=== PATIENT | female | born 1955 | race Caucasian/White ===

== ENCOUNTER 2021-07-25 11:41 | Emergency (ER) | payer OTHER, SELFPAY ==
[2021-07-25 11:50] VITALS: BP 210/127; PULSE 60; RESP 14; TEMP 36.2; O2SAT 97; BMI 38.4
--- NOTE | 2021-07-25 11:51 | XRR_ITS ---
PROCEDURE INFORMATION: Exam: XR Chest Exam date and time: 07/25/2021 12:11 PM Age: 65 years old Clinical indication: Cough and dyspnea and shortness of breath; Additional info: Dyspnea/cough TECHNIQUE: Imaging protocol: XR of the chest. Views: 1 view. COMPARISON: No relevant prior studies available. FINDINGS: Lungs: Streaky bibasilar atelectasis. No consolidation. Pleural spaces: Unremarkable. No pleural effusion. No pneumothorax. Heart/Mediastinum: Unremarkable. No cardiomegaly. Bones/joints: Unremarkable. XR/XR chest 1V portable [id number] IMPRESSION: No evidence of active cardiopulmonary disease.
--- NOTE | 2021-07-25 11:51 | ECG_ITS ---
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 Measurements Intervals [place] Rate: 51 P: 61 [place]: 160 QRS: 28 QRSD: 83 T: 16 QT: 416 QTc: 383 Interpretive Statements SINUS BRADYCARDIA No previous ECG available for comparison Electronically Signed On 07-25-2021 17:13:16 CDT by Angel Do M.D. [email or web address].[email or web address] childrenAir Roboticsprem[facility] health [facility].[employer]/store/OM/[id number]
[2021-07-25 12:07] VITALS: BP 178/102; PULSE 53; RESP 21; O2SAT 97
[2021-07-25 12:13] LABS: Basophils % 0.5 %; Eosinophils # 0.2 10^3/uL (0.0-0.8); Eosinophils % 2.2 %; Hematocrit 39.2 % (37.0-47.0); Hemoglobin 12.9 g/dL (11.5-15.3); Lymphocytes % 24.8 %; Mean Corpuscular HGB Conc 32.9 g/dL (30.0-36.0); Mean Corpuscular Hemoglobin 28.7 pg (28.0-34.0); Mean Corpuscular Volume 87.1 fl (81-99); Mean Platelet Volume 9.7 fL (7.4-10.4); Monocytes # 0.6 10^3/uL (0.2-0.9); Monocytes % 7.7 %; Neutrophils % 64.3 %; Nucleated Red Blood Cells % 0 %; Platelet Count 347 10^3/cmm (130-400); Red Cell Distribution Width 13.7 % (12.1-15.1); White Blood Count 8.1 10^3/uL (4.0-10.0)
--- NOTE | 2021-07-25 12:19 | PC.NURSE ---
PT placed on continuous NIBP, SpO2, and CM
[2021-07-25 12:30] VITALS: BP 174/89; PULSE 59; RESP 17; O2SAT 97
[2021-07-25 12:44] LABS: Troponin T (5th) Once 6 ng/L (0-10)
[2021-07-25 12:54] LABS: Alanine Aminotransferase 24 U/L (0-33); Albumin Level 4.4 g/dL (3.5-5.2); Alkaline Phosphatase 132 IU/L (35-105); Aspartate Amino Transferase 19 U/L (0-32); Blood Urea Nitrogen 16 mg/dL (8-23); Calcium 9.3 mg/dL (8.5-10.5); Carbon Dioxide 25 mmol/L (22-29); Chloride 104 mmol/L (98-107); Globulin 3.1 g/dL (1.3-4.6); Glomerular Filtration Rate 72.4 mL/min (90-130); Glucose 106 mg/dL (65-115); NT Pro B Type Natriuretic Pept 42 pg/mL (0-125); Osmolality Calculated 294 mOsm/kg (285-295); Sodium 141 mmol/L (136-145); Total Bilirubin 0.2 mg/dL (0.15-1.2); Total Protein 7.5 g/dL (6.6-8.7)
[2021-07-25 12:58] LABS: Anion Gap 16.1 (5-19); Potassium 4.1 mmol/L (3.5-5.1)
--- NOTE | 2021-07-25 13:01 | W.ED.SOB ---
HPI - SOB/Dyspnea General: Chief Complaint: Shortness of Breath/Dyspnea Stated Complaint: SOB Time Seen by Provider: 07/25/21 11:49 Source: patient Mode of arrival: ambulatory Limitations: no limitations History of Present Illness: HPI Narrative: 62-year-old female presents emergency room with complaints of shortness of breath the last several weeks. She occasionally has some chest which she describes as tightness in the epigastric region and lower chest she has not had any productive cough she has not had any fever sweats or chills. No known history of coronary artery disease. MD elicited complaint: shortness of breath Pertinent past history: asthma Onset (ago): week(s) (3) Timing: intermittent Severity: moderate Exacerbating factors: exertion and coughing Relieving factors: rest Known history of: asthma Associated symptoms: Reports cough; Deny abdominal pain, chest congestion, chest pain, diaphoresis, dizziness, extremity pain, fever(s), hemoptysis, lightheadedness, myalgias, nausea, orthopnea, palpitations, paresthesias, polydipsia, polyuria, rash, sense of impending doom, syncope or vomiting Treatment prior to arrival: none Review of Systems Const: Denies: fever(s), chills or diaphoresis Eyes: Denies: change in vision or blurry vision ENMT: Denies: throat pain, ear or mastoid pain, nasal discharge or nasal congestion Card: Denies: chest pain, palpitations, lightheadedness, syncope or orthopnea Resp: Denies: hemoptysis or chest congestion GI: Denies: abdominal pain, nausea or vomiting : Denies: flank pain, difficulty voiding, dysuria, urinary frequency or urinary urgency Musc: Denies: extremity pain Skin/Breast: Denies: rash or pruritus Neuro: Denies: dizziness Endo: Denies: polyuria or polydipsia PFSH ED PFSH: Medical History HTN (hypertension) Hyperlipidemia Social History Smoking and tobacco status: never smoked Alcohol intake: never Physical Exam Const: COMMON NORMALS: no acute distress GENERAL APPEARANCE: cooperative and comfortable ORIENTATION/CONSCIOUSNESS: Yes awake, Yes oriented to person, Yes oriented to place and Yes oriented to time HENMT: COMMON NORMALS: normocephalic, atraumatic and hearing grossly normal bilaterally HEAD & SCALP: normocephalic and atraumatic Neck/C-Spine: COMMON NORMALS: no JVD Resp: COMMON NORMALS: normal respiratory effort, No retractions and No use of accessory muscles AUSCULTATION: wheezes (Scant) Cardio: COMMON NORMALS: no JVD and No murmurs present (Cardio) GI: COMMON NORMALS: Soft to palpation and No hepatosplenomegaly present AUSCULTATION: Yes normoactive bowel sounds PALPATION: Yes Soft to palpation, No Tenderness to palpation present (GI), No Guarding due to palpation present (GI) and Yes No hepatosplenomegaly present Extremity: COMMON NORMALS: normal to inspection, capillary refill normal, no clubbing, cyanosis or edema, no calf tenderness and no pedal edema Neuro: SENSORIUM/ORIENTATION: Yes oriented to person, Yes oriented to place and Yes oriented to time Skin: COMMON NORMALS: no rashes or lesions noted GENERAL SKIN EXAM: no rashes or lesions noted Course Vital Signs: Vital signs: Vital Signs Temperature 97.2 F L 07/25/21 11:50 Pulse Rate 65 07/25/21 16:04 Respiratory Rate 26 H 07/25/21 16:04 Blood Pressure 169/80 07/25/21 16:04 Pulse Oximetry 96 07/25/21 16:04 MDM - SOB/Dyspnea Medical Decision Making Labs and imaging reviewed. Treat as asthma exacerbation. Additionally blood pressure is elevated will add amlodipine continue losartan follow-up with primary care within the next week return if is worsening problems. Medical Records I reviewed the patient's medical records. Lab Data I reviewed the patient's lab results. : 07/25/21 11:58 07/25/21 11:58 Labs/Radiology: Radiology Impressions Chest X-Ray 07/25/21 11:51 IMPRESSION: No evidence of active cardiopulmonary disease. Laboratory Results WBC 8.1 10^3/uL (4.0-10.0) 07/25/21 11:58 RBC 4.50 10^6/uL (4.1-5.3) 07/25/21 11:58 Hgb 12.9 g/dL (11.5-15.3) 07/25/21 11:58 Hct 39.2 % (37.0-47.0) 07/25/21 11:58 MCV 87.1 fl (81-99) 07/25/21 11:58 MCH 28.7 pg (28.0-34.0) 07/25/21 11:58 MCHC 32.9 g/dL (30.0-36.0) 07/25/21 11:58 RDW 13.7 % (12.1-15.1) 07/25/21 11:58 Plt Count 347 10^3/cmm (130-400) 07/25/21 11:58 MPV 9.7 fL (7.4-10.4) 07/25/21 11:58 Neut % (Auto) 64.3 % 07/25/21 11:58 Lymph % (Auto) 24.8 % 07/25/21 11:58 [place] % (Auto) 7.7 % 07/25/21 11:58 Eos % (Auto) 2.2 % 07/25/21 11:58 Baso % (Auto) 0.5 % 07/25/21 11:58 Neut # (Auto) 5.20 10^3/uL (1.8-7.7) 07/25/21 11:58 Lymph # (Auto) 2.0 10^3/uL (0.8-4.8) 07/25/21 11:58 [place] # (Auto) 0.6 10^3/uL (0.2-0.9) 07/25/21 11:58 Eos # (Auto) 0.2 10^3/uL (0.0-0.8) 07/25/21 11:58 Baso # (Auto) 0.0 10^3/uL (0.0-0.1) 07/25/21 11:58 Nucleated RBC % (auto) 0 % 07/25/21 11:58 Nucleated RBCs # 0.0 /100WBC 07/25/21 11:58 Sodium 141 mmol/L (136-145) 07/25/21 11:58 Potassium 4.1 mmol/L (3.5-5.1) 07/25/21 11:58 Chloride 104 mmol/L (98-107) 07/25/21 11:58 Carbon Dioxide 25 mmol/L (22-29) 07/25/21 11:58 Anion Gap 16.1 (5-19) 07/25/21 11:58 BUN 16 mg/dL (8-23) 07/25/21 11:58 Creatinine 0.8 mg/dL (0.5-0.9) 07/25/21 11:58 GFR Calculation 72.4 mL/min (90-130) L 07/25/21 11:58 Glucose 106 mg/dL (65-115) 07/25/21 11:58 Calculated Osmolality 294 mOsm/kg (285-295) 07/25/21 11:58 Calcium 9.3 mg/dL (8.5-10.5) 07/25/21 11:58 Total Bilirubin 0.2 mg/dL (0.15-1.2) 07/25/21 11:58 AST 19 U/L (0-32) 07/25/21 11:58 ALT 24 U/L (0-33) 07/25/21 11:58 Alkaline Phosphatase 132 IU/L (35-105) H 07/25/21 11:58 Troponin T Gen 5 ng/L 6 ng/L (0-10) 07/25/21 11:58 Troponin T 120 Minute 6.00 ng/L (0-10) 07/25/21 13:48 Delta Troponin T 0 ABS# (0-10) 07/25/21 13:48 NT-Pro-B Natriuret Pep 42 pg/mL (0-125) 07/25/21 11:58 Total Protein 7.5 g/dL (6.6-8.7) 07/25/21 11:58 Albumin 4.4 g/dL (3.5-5.2) 07/25/21 11:58 Globulin 3.1 g/dL (1.3-4.6) 07/25/21 11:58 Discharge Plan Discharge Patient Disposition: Home Clinical Impression: Asthma with exacerbation, HTN (hypertension) Condition: Stable Prescriptions: New amlodipine 2.5 mg tablet 2.5 mg PO DAILY Qty: 30 0RF Changed losartan 50 mg tablet 100 mg PO DAILY Qty: 0 0RF No Action atorvastatin 20 mg tablet 20 mg PO DAILY 0RF Discharge Orders: Discharge ED (Routine); Ordered 07/25/21 Ordered By: Yamil Cota Patient Instructions: Opioid Safety Activity Restrictions/Additional Instructions: online advertising manager will make arrangements for her to have a follow-up Martha oakestamibi stress test. Coding Level of Care Code ED Sales Agent Business Services for Maddison Borges
[2021-07-25 13:30] VITALS: BP 155/81; PULSE 59; RESP 19; O2SAT 98
--- NOTE | 2021-07-25 13:40 | ECG_ITS ---
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 Measurements Intervals [place] Rate: 65 P: 65 [place]: 157 QRS: 14 QRSD: 90 T: -5 QT: 397 QTc: 413 Interpretive Statements SINUS RHYTHM WITH FREQUENT VENTRICULAR PREMATURE COMPLEXES NONSPECIFIC T-WAVE ABNORMALITY ABNORMAL RHYTHM ECG Compared to ECG 07/25/2021 12:16:48 Ventricular premature complex(es) now present T-wave abnormality now present Sinus bradycardia no longer present Electronically Signed On 07-25-2021 17:13:30 CDT by Angel Do M.D. [email or web address] [email or web address] [email or web address] hospitals [email or web address]/store/OM/[id number]
[2021-07-25 15:03] LABS: Troponin 5 2HR Delta 0 ABS# (0-10)
--- NOTE | 2021-07-25 15:40 | ECG_ITS ---
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 Measurements Intervals [place] Rate: 54 P: 64 ME: 161 QRS: 26 QRSD: 86 T: 32 QT: 427 QTc: 405 Interpretive Statements SINUS BRADYCARDIA WITH MARKED SINUS ARRHYTHMIA Compared to ECG 07/25/2021 13:55:25 Sinus rhythm no longer present Ventricular premature complex(es) no longer present T-wave abnormality no longer present Electronically Signed On 07-25-2021 17:15:31 CDT by Angel Do M.D. [id number]
[2021-07-25 16:04] VITALS: BP 169/80; PULSE 65; RESP 26; O2SAT 96
--- NOTE | 2021-07-25 17:05 | DCPLANNER ---
senior site manager had message to schedule an outpatient stress test for patient. senior site manager spoke with patient to confirm that patient wanted to have the stress test scheduled. Patient stated that she does not live in the area, and that she will follow up with her primary care physician.
== END 2021-07-25 16:09 | disposition home or self-care (01) ==
PROVIDERS: Emergency Provider Family Medicine
DX: J45.901 Unspecified asthma with (acute) exacerbation (principal); I10 Essential (primary) hypertension
CPT/HCPCS: 36415; 71045; 80053; 83880; 84484; 85025; 93005; 99284